=== PATIENT | male | born 1965 | race Two or more races ===

== ENCOUNTER 2023-05-16 17:08 | Emergency (ER) | payer BC ==
[~2023-05-16] VITALS: Ht 180.3 cm; Wt 99.8 kg
--- NOTE | 2023-05-16 17:26 | NUR ---
Patient came with L elbow pain and swelling x 2 weeks from possible insect bite ,placed on bed ,connect to cardiac monitoir and pulse oxymeter.alert and oriented ,on room air.
--- NOTE | 2023-05-16 17:34 | NUR ---
DR ARTIS AT BED SIDE.
[2023-05-16] MEDS ORDERED: CEPH500T PO (17:37)
[2023-05-16] MEDS ORDERED: CEPHALEXIN MONOHYDRATE 500 MG CAPSULE PO ONE ×2 (17:39→18:00)
--- NOTE | 2023-05-16 17:42 | NUR ---
Patient discharged to home in stable condition. Written and verbal after care instructions given. Patient verbalizes understanding of instruction.
[2023-05-16 17:43] VITALS: BP 112/74; TEMP 98.1
== END 2023-05-16 17:43 | disposition home or self-care (01) ==
LOC: ER 17:18
DX: L03.114 Cellulitis of left upper limb (principal)